=== PATIENT | male | born 1965 | race Caucasian/White ===

== ENCOUNTER 2017-06-14 07:41 | Emergency (ER) | payer SELFPAY ==
[2017-06-14 07:58] VITALS: BP 132/81
--- NOTE | 2017-06-14 09:57 | Emergency Department Report ---
ED ENT HPI - General Chief complaint: Dental/Oral Stated complaint: TOOTHACHE Time Seen by Provider: 06/14/17 09:08 Source: patient Mode of arrival: Ambulatory Limitations: No Limitations - History of Present Illness Initial comments: PT states he has NKDA. PT states that he has left upper toothache x 3 weeks. PT states last week, he noticed facial swelling. PT states the swelling spontaneously improved. PT states he has had subjective fevers. PT has been taking Tylenol for the pain. PT states his last dental visit was a year ago and at that time he had a tooth pulled. MD complaint: tooth pain -: Gradual, week(s) (3) 1 - pain Severity: severe Quality: aching Consistency: constant Improves with: none Worsens with: eating, other (palpation) Context- Dental: history of dental caries, poor dental care Associated Symptoms: fever (subjective ), gum swelling, toothache. denies: pain with swallowing, sore throat - Related Data Previous Rx's Medication Instructions Recorded Last Taken Type Acetaminophen/Codeine [Tylenol #3] 1 tab PO Q6H PRN #12 tab 06/14/17 Unknown Rx Amoxicillin 500 mg PO BID #20 capsule 06/14/17 Unknown Rx Ibuprofen [Motrin] 600 mg PO Q8H PRN #15 tablet 06/14/17 Unknown Rx ED Dental HPI - General Chief complaint: Dental/Oral Stated complaint: TOOTHACHE Time Seen by Provider: 06/14/17 09:08 Source: patient Mode of arrival: Ambulatory Limitations: No Limitations - Related Data Previous Rx's Medication Instructions Recorded Last Taken Type Acetaminophen/Codeine [Tylenol #3] 1 tab PO Q6H PRN #12 tab 06/14/17 Unknown Rx Amoxicillin 500 mg PO BID #20 capsule 06/14/17 Unknown Rx Ibuprofen [Motrin] 600 mg PO Q8H PRN #15 tablet 06/14/17 Unknown Rx ED Review of Systems ROS: Stated complaint: TOOTHACHE Other details as noted in HPI Comment: All other systems reviewed and negative Constitutional: chills, fever ENT: as per HPI, ear pain (L), dental pain Gastrointestinal: denies: nausea, vomiting Musculoskeletal: other (facial swelling - resolved ) Neurological: headache ED Past Medical Hx - Past Medical History Previous Medical History?: Yes Hx Hypertension: Yes - Surgical History Past Surgical History?: No - Social History Smoking Status: Current Every Day Smoker Substance Use Type: None - Medications Home Medications: Home Medications Medication Instructions Recorded Confirmed Last Taken Type Acetaminophen/Codeine [Tylenol #3] 1 tab PO Q6H PRN #12 tab 06/14/17 Unknown Rx Amoxicillin 500 mg PO BID #20 capsule 06/14/17 Unknown Rx Ibuprofen [Motrin] 600 mg PO Q8H PRN #15 tablet 06/14/17 Unknown Rx ED Physical Exam - General Limitations: No Limitations General appearance: alert, in no apparent distress - Head Head exam: Present: atraumatic, normocephalic, normal inspection, other (no facial swelling noted ) - Eye Eye exam: Present: normal appearance, PERRL, EOMI. Absent: conjunctival injection - ENT ENT exam: Present: normal orophraynx, mucous membranes moist, TM's normal bilaterally, normal external ear exam - Expanded ENT Exam Expanded Mouth exam: Absent: drooling, trismus Teeth exam: Present: dental caries (tooth 11 decayed, tooth 12 absent ), dental tenderness # (11), other (no dental abscess noted ). Absent: gingival enlargement Throat exam: Negative: tonsillar erythema, tonsillar exudate, R peritonsillar mass, L peritonsillar mass - Neck Neck exam: Present: normal inspection, full ROM. Absent: tenderness, lymphadenopathy - Respiratory Respiratory exam: Present: normal lung sounds bilaterally, respiratory distress. Absent: wheezes, rales, rhonchi, chest wall tenderness - Cardiovascular Cardiovascular Exam: Present: regular rate, normal rhythm, normal heart sounds - Extremities Exam Extremities exam: Present: normal inspection, full ROM. Absent: tenderness, normal capillary refill - Back Exam Back exam: Present: normal inspection, full ROM. Absent: tenderness, CVA tenderness (R), CVA tenderness (L) - Neurological Exam Neurological exam: Present: alert, oriented X3, normal gait - Psychiatric Psychiatric exam: Present: normal affect, normal mood - Skin Skin exam: Present: warm, dry, intact ED Course Vital Signs 06/14/17 07:48 Temperature 98.1 F Pulse Rate 96 H Respiratory 18 Rate Blood Pressure 132/81 O2 Sat by Pulse 99 Oximetry - Reevaluation(s) Reevaluation #1: 06/14/17 09:58 PT aware of dx and plan of care. PT aware he will need to follow up with Dentist. - Pulse Oximetry Interpretation Digit-Finger Initial Pulse Oximetry Readin Actions Taken: none ED Medical Decision Making - Differential Diagnosis cavitiy, abscess Critical Care Time: No Critical care attestation.: If time is entered above; I have spent that time in minutes in the direct care of this critically ill patient, excluding procedure time. ED Disposition Clinical Impression: Dental decay, Toothache Disposition: TO HOME OR SELFCARE Is pt being admited?: No Does the pt Need Aspirin: No Condition: Stable Instructions: Dental Caries (ED), Toothache (ED) Additional Instructions: Good oral hygiene No driving or alcohol after taking Tylenol #3 Try treating your pain with Motrin first Finish all antibiotics Follow up with a Dentist in 3-5 days Return to the ED if worsening or concerns Prescriptions: Acetaminophen/Codeine [Tylenol #3] 1 tab PO Q6H PRN #12 tab PRN Reason: Pain , Severe (7-10) Amoxicillin 500 mg PO BID #20 capsule Ibuprofen [Motrin] 600 mg PO Q8H PRN #15 tablet PRN Reason: Pain Referrals: PRIMARY CAREMD [Primary Care Provider] - 3-5 Days EMMA ROQUE MD [Staff Physician] - 3-5 Days [facility] [Outside] - 3-5 Days Time of Disposition: 10:02
== END 2017-06-14 10:16 | disposition home or self-care (01) ==
LOC: ED 07:41
DX: K02.9 Dental caries, unspecified (principal); K08.89 Other specified disorders of teeth and supporting structures; F17.200 Nicotine dependence, unspecified, uncomplicated
CPT/HCPCS: 99281